=== PATIENT | male | born 1985 | race African-American/Black ===

== ENCOUNTER → 2017-08-03 | Outpatient (CLI) | payer OTHER ==
[~2017-08-03] MED LIST: GASTROGRAFIN SOLUTION 30ML (Q9963) As Ordered; ISOVUE-370 76% 100ML VIAL (Q9967) As Ordered
== END ==
LOC: M RAD 12:32
DX: Q76.49 Other congenital malformations of spine, not associated with scoliosis (principal); R19.09 Other intra-abdominal and pelvic swelling, mass and lump